=== PATIENT | male | born 1960 | race Caucasian/White ===

== ENCOUNTER 2017-01-06 08:22 | Emergency (ER) | payer OTHER ==
--- NOTE | 2017-01-06 11:07 | RAD ---
INDICATION: Left knee pain COMPARISON: None TECHNIQUE: Weightbearing AP, lateral, tunnel, and sunrise views were obtained. FINDINGS: There are no acute bony findings. There is traction spurring from the superior patella There is minor lateral subluxation of the patella on the sunrise view. There is minor medial joint space narrowing. The lateral joint space is preserved. There is no joint effusion. IMPRESSION: MINOR LATERAL SUBLUXATION OF THE PATELLOFEMORAL AND MILD MEDIAL JOINT SPACE NARROWING
[2017-01-06] MEDS ORDERED: Ketorolac INJ* 60 MG/2 ML VIAL IM ONE (11:27)
[2017-01-06 11:59] VITALS: BP 133/88
--- NOTE | 2017-01-08 08:04 | ED ---
Lower Extremity - HPI Summary HPI Summary: Pt here w/ L knee pain x 1 day. Noticed when he woke yesterday morning - tightness along lateral aspect of knee. Went about his day (ie. walking, bending , climbing a ladder, etc) w/o difficulty but noticed pain progressed at end of the day and he had difficulty sleeping as a result of pain. Has tried 3 rounds of ibuprofen 400mg alternating with acetaminophen 1000mg. Mild relief when he initially took these, but last round did not provide relief. Denies h/o knee issues/injury and no recent mechanical changes to indicate injury. Denies h/o gout and no predisposing factors re: diet. Denies fever, chills, numbness, tingling, weakness, rash. Denies difficulty w/ vision or urination as well. NOTE: has been taking 20mg lipitor prophylactically for "years" as he has a brother w/ CVD. He himself has never had abnormal labs. Also denies use of steroids and fluoroquinolones. - History of Current Complaint Chief Complaint: EDExtremityLower Stated Complaint: LT KNEE PAIN Time Seen by Provider: 01/06/17 10:12 Hx Obtained From: Patient, Family/Manager Building - Pain Intensity: 7 PMH/Surg Hx/FS Hx/Imm Hx Previously Healthy: Yes Endocrine/Hematology History: Denies: Hx Anticoagulant Therapy, Hx Blood Disorders, Hx Coagulopothy, Autoimmune Disease Cardiovascular History: Denies: Hx Deep Vein Thrombosis Infectious Disease History: No Infectious Disease History: Denies: Traveled Outside the [place] in Last 30 Days - Family History Known Family History: Positive: Cardiac Disease - brother - Social History Occupation: Employed Full-time - attny, landlord - performs repairs, etc himself Alcohol Use: Occasionally Hx Substance Use: No Substance Use Type: Reports: None Hx Tobacco Use: No Smoking Status (MU): Never Smoked Tobacco Review of Systems Constitutional: Negative Eyes: Negative Negative: Chest Pain Negative: Cough Genitourinary: Negative Musculoskeletal: Other - see HPI Skin: Negative Neurological: Negative Psychological: Normal All Other Systems Reviewed And Are Negative: Yes Physical Exam Triage Information Reviewed: Yes Vital Signs On Initial Exam: Initial Vitals Temp Pulse Resp BP Pulse Ox 97.4 F 60 18 139/89 100 01/06/17 08:23 01/06/17 08:23 01/06/17 08:23 01/06/17 08:23 01/06/17 08:23 Vital Signs Reviewed: Yes Appearance: Positive: Well-Appearing, No Pain Distress, Well-Nourished Skin: Positive: Warm, Dry - Lt knee w/ mild edema compared to Rt - no fever to touch, no blanca erythema, no ecchymosis, no rash Head/Face: Positive: Normal Head/Face Inspection Eyes: Positive: EOMI, Conjunctiva Clear ENT: Positive: Hearing grossly normal Respiratory/Lung Sounds: Positive: Breath Sounds Present Cardiovascular: Positive: Normal, Pulses are Symmetrical in both Upper and Lower Extremities Musculoskeletal: Positive: Strength/ROM Intact - FROM Lt knee and other joints of this extremity - pain is not worse w/ any movement or palpation - pain is constant regardless of position but does report it feels best with some flexion vs. full extension Neurological: Positive: Normal, Sensory/Motor Intact, Alert, Oriented to Person Place, Time, CN Intact II-III Psychiatric: Positive: Normal Diagnostics - Vital Signs Vital Signs Temp Pulse Resp BP Pulse Ox 01/06/17 11:58 97.8 F 64 18 133/88 01/06/17 08:27 97.9 F 62 18 139/89 100 01/06/17 08:23 97.4 F 60 18 139/89 100 - Laboratory Lab Statement: Any lab studies that have been ordered have been reviewed, and results considered in the medical decision making process. Lower Extremity Course/Dx - Course Course Of Treatment: Pt presents w/ acute Lt knee pain w/o known cause. PE is neg for structural impairment other than very mild arthritis along medial joint. XR indicates patellar d/o however this was reviewed by Dr. Campos who does not feel XR findings correlate w/ current condition. It was discussed this could be early/mild gout, infection or adverse effects of lipitor. Without strong clinical presentation of gout or infection, neither will be further investigated via labs nor will treatment for these be implemented today. We also discussed the possibility of meniscal injury that's preseting w/ neg test. Discussed w/ Dr. Campos who agrees to see pt in f/u. Pt to rest, ice, elevate, limited movement but do perform gentle stretches to reduce stiffness. Reviewed danger s/sx. Pt and voice understanding and agree to plan. Diff dx: Lyme - Diagnoses Provider Diagnoses: Left knee pain - Physician Notifications Discussed Care Of Patient With: Dr. Campos Discharge - Discharge Plan Condition: Stable Disposition: HOME Prescriptions: HYDROcodone/ACETAMIN 5-325 MG* [[place] 5-325 TAB*] 1 tab PO Q6H PRN #20 tab MDD 4 PRN Reason: Pain Ibuprofen TAB* [Motrin TAB* 600 MG] 600 mg PO Q6H PRN #20 tab PRN Reason: Pain Patient Education Materials: Knee Pain (ED) Referrals: Sky Campos MD [Medical Doctor] - Additional Instructions: Rest, ice, elevate Use crutches to avoid weight bearing if painful Take medications as directed Follow-up with orthopedics Tuesday - call today to schedule appointment *If you develop redness, swelling, streaking, fever, chills, return to ED
== END 2017-01-06 12:00 | disposition home or self-care (01) ==
LOC: ED 08:22
DX: M25.562 Pain in left knee (principal)
CPT/HCPCS: 96372; 99282; J1885

== ENCOUNTER 2017-12-29 13:54 | Day surgery (SDC) | payer OTHER ==
[~2017-12-29 13:54] MED LIST: Buffered Lidocaine 0.9% SYRIN* 5 ML/SYR SYRINGE INTRADERM ONE
[2017-12-29] MEDS ORDERED: ceFAZolin 2 GM PREMIX (*) 2 GM/50 ML BAG IVPB ONE (14:19)
[2017-12-29] MEDS ORDERED: Bupivacaine 0.25% SDV* 30 ML ONE (17:52)
[2017-12-29] MEDS ORDERED: Lidocain 1% EPI 1:100,000 * 30 ML MDV ONE (17:52)
[2017-12-29] MEDS ORDERED: fentaNYL* 50 MCG/ML 2 ML VIAL (100 MCG VIAL) ONE (18:07)
[2017-12-29] MEDS ORDERED: Midazolam* 1 MG/ML 2 ML VIAL (2 MG) ONE (18:07)
[2017-12-29] MEDS ORDERED: Naloxone* 0.4 MG/ML 1 ML VIAL IV PRN (18:17)
[2017-12-29] MEDS ORDERED: Acetaminophen TAB* 325 MG PO PRN (18:17)
[2017-12-29] MEDS ORDERED: oxyCODONE TAB* 5 MG TAB PO PRN (18:17)
[2017-12-29 18:51] VITALS: BP 108/75
== END 2017-12-29 18:54 | disposition home or self-care (01) ==
LOC: OREAST 13:54
PROVIDERS: ATTEND Plastic Surgery
DX: D17.0 Benign lipomatous neoplasm of skin and subcutaneous tissue of head, face and neck (principal); E78.00 Pure hypercholesterolemia, unspecified
CPT/HCPCS: 88304; J0690; J2250; J3010